=== PATIENT | female | born 1990 | race American Indian/Alaskan Native ===

== ENCOUNTER 2016-07-31 18:53 | Emergency (ER) | payer OTHER ==
[2016-07-31 18:54] VITALS: BMI 22.4
--- NOTE | 2016-07-31 19:58 | C.PDOC ---
History Of Present Illness Patient presents to the ER with a complaint of abdominal pain since yesterday. Patient states she feels a swollen lymph node to the right anterior aspect of her neck and reports having a black tongue. Denies fever, chills, nausea or vomiting. Time Seen by Provider: 07/31/16 19:57 Chief Complaint (Nursing): Abdominal Pain History Per: Patient History/Exam Limitations: no limitations Onset/Duration Of Symptoms: Days Current Symptoms Are (Timing): Still Present Severity: Moderate Pain Scale Rating Of: 4 Location Of Pain/Discomfort: Diffuse Radiation Of Pain To:: None Quality Of Discomfort: Unable To Describe Associated Symptoms: Other (Swollen lymph node, black tongue). denies: Fever, Chills, Nausea, Vomiting Exacerbating Factors: None Alleviating Factors: None Recent travel outside of the [place]: No Past Medical History Reviewed: Historical Data, Nursing Documentation, Vital Signs Vital Signs: Last Vital Signs Temp 98 F 07/31/16 18:55 Pulse 68 07/31/16 18:55 Resp 18 07/31/16 18:55 BP 116/78 07/31/16 18:55 Pulse Ox 100 07/31/16 21:54 - Medical History PMH: No Chronic Diseases Surgical History: No Surg Hx Family History: States: Unknown Family Hx - Social History Hx Tobacco Use: No Hx Alcohol Use: Yes Hx Substance Use: No - Immunization History Hx Tetanus Toxoid Vaccination: No Hx Influenza Vaccination: Yes Hx Pneumococcal Vaccination: Yes Review Of Systems Constitutional: Negative for: Fever, Chills ENT: Positive for: Other (Black tongue) Gastrointestinal: Positive for: Abdominal Pain. Negative for: Nausea, Vomiting Musculoskeletal: Positive for: Other (Swollen lymph node to neck) Physical Exam - Physical Exam Appears: Non-toxic Skin: Warm, Dry Head: Normacephalic Eye(s): bilateral: Normal Inspection Oral Mucosa: Moist Tongue: Other (Black hairy tongue) Throat: No Erythema Neck: Trachea Midline, Supple Lymphatic: Adenopathy (Anterior sternocleidomastoid, tender to palpation) Chest: Symmetrical, No Tenderness Cardiovascular: Rhythm Regular, No Murmur Respiratory: No Rales, No Rhonchi, No Wheezing Gastrointestinal/Abdominal: Soft, Tenderness (Diffusely), No Distention, No Guarding, No Rebound Back: No CVA Tenderness Extremity: Normal ROM Extremity: Bilateral: Atraumatic Neurological/Psych: Oriented x3, Normal Speech, Normal Cognition Gait: Steady ED Course And Treatment - Laboratory Results Result Diagrams: 07/31/16 20:20 07/31/16 20:20 O2 Sat by Pulse Oximetry: 100 (Room air) Pulse Ox Interpretation: Normal Progress Note: Blood work and urinalysis ordered. IV fluids administered. Pt does not want to wait for the ct scan of the abdomen.Is aware of the risks which I've explained at length, including permanent disability and , but pt still wants to leave. Disposition Counseled Patient/Family Regarding: Studies Performed, Diagnosis, Need For Followup - Disposition Referrals: Rosa Saleh MD [Staff Provider] - Disposition: HOME/ ROUTINE Disposition Time: 19:58 Condition: FAIR Additional Instructions: Please return if symptoms recur Instructions: Jaundice (ED), Adenitis (ED) - Clinical Impression Clinical Impression: Abdominal pain, Elevated bilirubin, Black hairy tongue - Scribe Statement The provider has reviewed the documentation as recorded by the Scribe Matthew Steven All medical record entries made by the Scribe were at my direction and personally dictated by me. I have reviewed the chart and agree that the record accurately reflects my personal performance of the history, physical exam, medical decision making, and the department course for this patient. I have also personally directed, reviewed, and agree with the discharge instructions and disposition.
[2016-07-31] MEDS ORDERED: Sodium Chloride 0.9% 1,000 ML IV ONE (20:04)
[2016-07-31] MEDS ORDERED: Sodium Chloride 0.9% 1,000 ML ONE (20:09)
[2016-07-31 20:27] LABS: BASO # 0.1 K/uL (0.0-0.2); BASO % 0.6 % (0.0-2.0); EOS % 0.5 % (0.0-4.0); LYMPH # 2.2 K/uL (1.0-4.3); LYMPH % 22.1 % (20.0-40.0); MEAN CELL VOLUME 92.7 fL (81.0-99.0); MEAN CORPUSCULAR HEMOGLOBIN 30.5 pg (27.0-31.0); MEAN CORPUSCULAR HGB CONC 32.9 g/dL (33.0-37.0); MEAN PLATELET VOLUME 8.2 fL (7.2-11.7); MONO % 10.6 % (0.0-10.0); NRBC % 0.1 % (0.0-2.0); RED CELL DISTRIBUTION WIDTH 13.2 % (11.5-14.5); WHITE BLOOD COUNT 9.8 K/uL (4.8-10.8)
[2016-07-31 20:29] LABS: URINE BILIRUBIN NEGATIVE (NEGATIVE); URINE COLOR Straw (YELLOW); URINE GLUCOSE (UA) NORMAL (Normal); URINE KETONE 1+ mg/dL (NEGATIVE); URINE LEUKOCYTE ESTERASE NEG Leu/uL (Negative); URINE PROTEIN NEGATIVE (NEGATIVE); URINE UROBILINOGEN NORMAL mg/dL (0.2-1.0); WBC URINE 2 /hpf (0-5)
[2016-07-31 20:30] LABS: RBC URINE 9 /hpf (0-3); URINE BACTERIA RARE (<OCC)
[2016-07-31 20:32] LABS: URINE BLOOD 1+ (NEGATIVE)
[2016-07-31 20:35] LABS: CHLORIDE 105 mmol/L (98-107); SODIUM 140 mmol/L (132-148)
[2016-07-31 20:36] LABS: POTASSIUM 5.6 mmol/L (3.6-5.2)
[2016-07-31 20:37] LABS: ALKALINE PHOSPHATASE 45 U/L (38-126); BLOOD UREA NITROGEN 12 mg/dL (7-17); CARBON DIOXIDE 21 mmol/L (22-30); GFR AFRICAN-AMERICAN > 60
[2016-07-31 20:38] LABS: ALT/SGPT 9 U/L (9-52); CALCIUM 9.3 mg/dl (8.6-10.4); GLUCOSE,RANDOM 66 mg/dL (65-105)
[2016-07-31 20:39] LABS: AST/SGOT 45 U/L (14-36); BILIRUBIN,TOTAL 2.5 mg/dL (0.2-1.3); TOTAL PROTEIN 8.8 g/dL (6.3-8.3)
[2016-07-31] MEDS ORDERED: Iodixanol 320 MG/ML 100 ML BOTTLE IV ONE (21:32)
[2016-07-31 21:59] VITALS: BP 121/70; PULSE 78; RESP 20; TEMP 97.6; O2SAT 98
== END 2016-07-31 22:00 | disposition left against medical advice (07) ==
LOC: C.ER 18:53
DX: R10.84 Generalized abdominal pain (principal); K14.3 Hypertrophy of tongue papillae; R17 Unspecified jaundice
CPT/HCPCS: 80053; 81001; 83690; 84703; 85025; 96360; 99284; J7040; Q9967

== ENCOUNTER 2018-04-28 18:38 | Emergency (ER) | payer MEDICAID, OTHER ==
[2018-04-28 18:38] VITALS: BMI 22.4
[2018-04-28 18:55] VITALS: RESP 18; O2SAT 98
[2018-04-28] MEDS ORDERED: Alum-Mag Hydrox-Simethicone Susp (30 mL) PO STA (19:34)
[2018-04-28] MEDS ORDERED: Belladonna-Phenobarbital PO STA (19:34)
[2018-04-28] MEDS ORDERED: Belladonna-Phenobarbital ONE (19:45)
[2018-04-28] MEDS ORDERED: Alum-Mag Hydrox-Simethicone Susp (30 mL) ONE (19:45)
--- NOTE | 2018-04-28 19:53 | C.PDOC ---
History Of Present Illness 27 year old female, whose past medical history includes asthma, presents to the ED for evaluation of abdominal pain that has been intermittent for the past month. Patient describes her pain as a "cramping" sensation that changes into the feeling of "a stomach ache." Patient also reports having occasional episodes of vomiting, but has been able to tolerate PO intake. She reports she has been off the DepoShot for the past two weeks. Patient states her last bowel movement was today. She denies fever, chills, diarrhea, dysuria, or recent travel. Patient denies smoking, reports occasional alcohol use. PMD: Dr. Rosa Saleh Time Seen by Provider: 04/28/18 19:15 Chief Complaint (Nursing): Abdominal Pain History Per: Patient History/Exam Limitations: no limitations Onset/Duration Of Symptoms: Intermittent Episodes (one month ) Current Symptoms Are (Timing): Better Location Of Pain/Discomfort: Diffuse Radiation Of Pain To:: None Quality Of Discomfort: Cramping, "Pain" Associated Symptoms: Vomiting. denies: Fever, Chills, Diarrhea, Constipation, Urinary Symptoms Last Bowel Movement: Today Recent travel outside of the [place]: No Additional History Per: Patient Abnormal Vaginal Bleeding: No Past Medical History Reviewed: Historical Data, Nursing Documentation, Vital Signs Vital Signs: Last Vital Signs Temp 98.5 F 04/28/18 18:52 Pulse 82 04/28/18 18:52 Resp 18 04/28/18 18:52 BP 142/84 04/28/18 18:52 Pulse Ox 98 04/28/18 18:52 - Medical History PMH: Asthma Surgical History: No Surg Hx Family History: States: Unknown Family Hx - Social History Hx Tobacco Use: No Hx Alcohol Use: Yes Hx Substance Use: No - Immunization History Hx Tetanus Toxoid Vaccination: Yes Hx Influenza Vaccination: Yes Hx Pneumococcal Vaccination: No Review Of Systems Constitutional: Negative for: Fever, Chills Gastrointestinal: Positive for: Vomiting, Abdominal Pain. Negative for: Diarrhea, Constipation Genitourinary: Negative for: Dysuria, Frequency, Hematuria Physical Exam - Physical Exam Appears: Well, Non-toxic, No Acute Distress, Other (appears well-hydrated) Skin: Normal Color, Warm, Dry Head: Atraumatic, Normacephalic Oral Mucosa: Moist Neck: Supple Chest: Symmetrical, No Deformity, No Tenderness Cardiovascular: Rhythm Regular, No Murmur Respiratory: Normal Breath Sounds, No Rales, No Rhonchi, No Wheezing Gastrointestinal/Abdominal: Soft, No Tenderness, No Guarding, No Rebound Extremity: Normal ROM, Capillary Refill (less than 2 seconds ) Neurological/Psych: Oriented x3, Normal Speech, Normal Cognition ED Course And Treatment O2 Sat by Pulse Oximetry: 98 (on RA) Pulse Ox Interpretation: Normal Medical Decision Making Medical Decision Making: Progress: Urinalysis and Urine POC ordered and reviewed. PO, Maalox PO, and Lidocaine 2% given. Disposition Counseled Patient/Family Regarding: Studies Performed, Diagnosis, Need For Followup - Disposition Referrals: Rosa Saleh MD [Staff Provider] - Disposition: HOME/ ROUTINE Disposition Time: 20:47 Condition: IMPROVED Additional Instructions: ALAN OSORIO, thank you for letting us take care of you today. Your provider was Shannon Quintana MD and you were treated for ABDOMINAL PAIN. The emergency medical care you received today was directed at your acute symptoms. If you were prescribed any medication, please fill it and take as directed. It may take several days for your symptoms to resolve. Return to the Emergency Department if your symptoms worsen, do not improve, or if you have any other problems. Please contact your doctor in 1-2 days for a follow up appointment. Bring any paperwork you were given at discharge with you along with any medications you are taking to your follow up visit. Our treatment cannot replace ongoing medical care by a primary care provider outside of the emergency department. Thank you for allowing the [facility] team to be part of your care today. Instructions: Stomach Ache and Stomach Upset, Clear Liquid Diet, Barren Diet Forms: [employer] (Pakistani), General Discharge Instructions - POA Present On Arrival: None - Clinical Impression Clinical Impression: Abdominal pain - Scribe Statement The provider has reviewed the documentation as recorded by the Scribe (Yamilka Schroeder) Provider Attestation: All medical record entries made by the Scribe were at my direction and personally dictated by me. I have reviewed the chart and agree that the record accurately reflects my personal performance of the history, physical exam, medical decision making, and the department course for this patient. I have also personally directed, reviewed, and agree with the discharge instructions and disposition.
[2018-04-28 19:56] LABS: SQUAMOUS EPITHIAL 14 /hpf (0-5); URINE BILIRUBIN NEGATIVE (NEGATIVE); URINE BLOOD 1+ (NEGATIVE); URINE CLARITY Hazy (Clear); URINE COLOR Yellow (YELLOW); URINE GLUCOSE (UA) NORMAL (Normal); URINE LEUKOCYTE ESTERASE NEG Leu/uL (Negative); URINE PROTEIN NEGATIVE (NEGATIVE)
[2018-04-28 20:44] VITALS: BP 113/75; PULSE 95; TEMP 98.9
== END 2018-04-28 20:55 | disposition home or self-care (01) ==
LOC: C.ER 18:38
DX: R10.9 Unspecified abdominal pain (principal)